=== PATIENT | female | born 1960 | race Caucasian/White ===

== ENCOUNTER 2021-06-20 08:58 | Day surgery (SDC) | payer OTHER, SELFPAY ==
[~2021-06-20] VITALS: Ht 160 cm; Wt 86.2 kg
[~2021-06-20 08:58] MED LIST: DIPHENHYDRAMINE INJ 50 MG/ML VIAL ONE; MIDAZOLAM HCL 5 MG/5 ML VIAL ONE
[2021-06-20] MEDS ORDERED: BUPIVACAINE /PF 0.25% 30 ML VIAL INJ ONE (08:59)
[2021-06-20] MEDS ORDERED: NS 1000 ML IV.SOLN IV ONE (08:59)
[2021-06-20] MEDS ORDERED: IOHEXOL 300 mgI/mL, 50 mL INFUS..BTL IV ONE (08:59)
[2021-06-20] MEDS ORDERED: LIDOCAINE 2%, 20 ML MDV IM ONE (08:59)
[2021-06-20] MEDS ORDERED: methylPREDNISolone ACETATE 40 MG/ML IM ONE (08:59)
[2021-06-20 13:04] VITALS: BP_SYST 113
== END 2021-06-20 11:50 | disposition home or self-care (01) ==
LOC: SDS 08:58 → SMU 08:59 → SDS 11:50
PROVIDERS: ATTEND Internal Medicine
DX: M51.16 Intervertebral disc disorders with radiculopathy, lumbar region (principal); M79.10 Myalgia, unspecified site; E03.9 Hypothyroidism, unspecified; Z20.822 Contact with and (suspected) exposure to COVID-19
CPT/HCPCS: 62323; J1030; J1200; J2001; J2250; J3490; J7030; Q9967; U0003; 76000

== ENCOUNTER 2023-04-07 08:00 | Day surgery (SDC) | payer OTHER ==
[~2023-04-07] VITALS: Ht 160 cm; Wt 79.4 kg
[2023-04-07] MEDS ORDERED: fentaNYL CITRATE/PF 100 MCG/2 ML AMP ONE (08:24)
[2023-04-07] MEDS ORDERED: ONDANSETRON HCL 4 MG/2 ML VIAL ONE (08:24)
[2023-04-07] MEDS ORDERED: methylPREDNISolone ACETATE 40 MG/ML ONE (09:00)
[2023-04-07] MEDS ORDERED: LIDOCAINE 2%, 20 ML MDV ONE (09:00)
[2023-04-07] MEDS ORDERED: iopamidoL 50 ML VIAL IV ONE (09:00)
[2023-04-07] MEDS ORDERED: NORMAL SALINE 10 ML VIAL ONE (09:00)
[2023-04-07 09:47] VITALS: O2SAT 98
[2023-04-07] MEDS: DIPHENHYDRAMINE INJ 50 MG/ML VIAL ONE ×2 (10:52→10:54)
[2023-04-07] MEDS: MIDAZOLAM HCL 5 MG/5 ML VIAL ONE ×2 (10:55→10:57)
[2023-04-07 17:09] VITALS: BP_SYST 132; PULSE 68; RESP 17
== END 2023-04-07 12:20 | disposition home or self-care (01) ==
LOC: SDS 08:00
PROVIDERS: ATTEND Internal Medicine
DX: M51.16 Intervertebral disc disorders with radiculopathy, lumbar region (principal); M51.9 Unspecified thoracic, thoracolumbar and lumbosacral intervertebral disc disorder; E03.9 Hypothyroidism, unspecified; K21.9 Gastro-esophageal reflux disease without esophagitis; M79.10 Myalgia, unspecified site; Z79.899 Other long term (current) drug therapy
CPT/HCPCS: 62323; J1200; J2001; J1030; J2250; J3010; Q9967; 76000; J2405

== ENCOUNTER 2023-11-17 11:27 | Day surgery (SDC) | payer BC ==
[~2023-11-17] VITALS: Ht 160 cm; Wt 79.4 kg
[~2023-11-17 11:27] MED LIST changes: -DIPHENHYDRAMINE INJ 50 MG/ML VIAL ONE; +LIDOCAINE MPF 2% 20 MG/1 ML, 5 ML VIAL INH ONE; -MIDAZOLAM HCL 5 MG/5 ML VIAL ONE
[2023-11-17 13:19] VITALS: O2SAT 100
[2023-11-17] MEDS ORDERED: fentaNYL CITRATE/PF 100 MCG/2 ML AMP ONE (13:37)
[2023-11-17] MEDS ORDERED: MIDAZOLAM HCL 5 MG/5 ML VIAL ONE (13:38)
[2023-11-17] MEDS: fentaNYL CITRATE/PF 100 MCG/2 ML AMP IVP ONE (14:31)
[2023-11-17 18:04] VITALS: BP_SYST 123; PULSE 80; RESP 17
== END 2023-11-17 15:24 | disposition home or self-care (01) ==
LOC: SDS 11:27 → SMU 11:28 → SDS 15:24
PROVIDERS: ATTEND Internal Medicine
DX: M51.16 Intervertebral disc disorders with radiculopathy, lumbar region (principal); M79.10 Myalgia, unspecified site; E03.9 Hypothyroidism, unspecified; K21.9 Gastro-esophageal reflux disease without esophagitis; Z98.890 Other specified postprocedural states; Z79.890 Hormone replacement therapy; Z79.899 Other long term (current) drug therapy
CPT/HCPCS: 62323; J2250; J3010; Q9967; J1010; 76000; J1030